=== PATIENT | male | born 1975 | race Two or more races ===

== ENCOUNTER 2021-11-11 17:02 | Emergency (ER) | payer OTHER, SELFPAY ==
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
[2021-11-11 17:18] VITALS: BP 139/85; PULSE 94; RESP 18; TEMP 36.6; O2SAT 98; BMI 34.4
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
== END 2021-11-11 20:40 | disposition home or self-care (01) ==
PROVIDERS: Emergency Provider Emergency Medicine
DX: S06.0X0A Concussion without loss of consciousness, initial encounter (principal); S16.1XXA Strain of muscle, fascia and tendon at neck level, initial encounter; G44.309 Post-traumatic headache, unspecified, not intractable; M54.2 Cervicalgia; H92.03 Otalgia, bilateral; V43.52XA Car driver injured in collision with other type car in traffic accident, initial encounter; Y93.9 Activity, unspecified; Y92.410 Unspecified street and highway as the place of occurrence of the external cause; Y99.9 Unspecified external cause status
CPT/HCPCS: 70450; 72125; 99283; 99284